=== PATIENT | female | born 1955 | race Caucasian/White ===

== ENCOUNTER 2024-01-10 18:24 | Observation (INO) | payer OTHER ==
[2024-01-10] MEDS ORDERED: ASPIRIN 81 MG CHEWABLE TABLET ONE (19:38)
[2024-01-10 19:43] LABS: Absolute Lymphocytes (CBC) 1.4 K/uL (0.7-4.9); Basophils % 0.4 % (0-1.3); Lymphocytes % 21.1 % (15.3-44.8); MCV 88.5 fL (80-100); MPV 8.6 fL (7.6-11.3); Platelets 300 thou/uL (152-406); RBC Red Blood Cell Count 4.74 M/uL (3.86-4.86)
--- NOTE | 2024-01-10 19:48 | RAD REPORT ---
EXAM DESCRIPTION: [facility] Single View01/10/2024 7:27 pm CLINICAL HISTORY: CHEST PAIN COMPARISON: Chest Pa And Lat (2 Views) dated 05/07/2018; Chest Pa And Lat (2 Views) dated 10/28/2017; CHEST SINGLE VIEW dated 09/16/2014; CHEST SINGLE VIEW dated 09/20/2012 TECHNIQUE: Portable AP view of the chest. FINDINGS: The lungs are clear. No pneumothorax or effusion. The cardiomediastinal contours are unre markable. IMPRESSION: No acute cardiopulmonary process.
[2024-01-10 20:03] LABS: ALT/SGPT 36 U/L (13-56); AST/SGOT 32 U/L (15-37); Albumin 3.9 g/dL (3.4-5.0); Alkaline Phosphatase 79 U/L (45-117); Anion Gap 6.7 mEq/L (5.0-15.0); BUN Blood Urea Nitrogen 16 mg/dL (7-18); Bicarbonate 29 mEq/L (21-32); Bilirubin Total 0.4 mg/dL (0.2-1.0); Glomerular Filtration Rate 64 ml/min (=/>90); Glucose Level 99 mg/dL (74-106); Magnesium 2.3 mg/dL (1.6-2.4); Potassium 3.7 mEq/L (3.5-5.1); Sodium Level 134 mEq/L (136-145); Troponin High Sensitivity 5.2 pg/mL (<58.9)
[2024-01-10 20:06] LABS: Bilirubin Direct < 0.1 mg/dL (0-0.2); Bilirubin Indirect, Calculated ND mg/dL (0.2-0.8)
--- NOTE | 2024-01-10 22:03 | EDPHYS ---
Physician Documentation [facility] Name: Courtney Wilson Age: 68 yrs Sex: Female : 1955 Arrival Date: 01/10/2024 Time: 18:24 Bed 5 Private MD: ED Physician Dionisio Jordan HPI: 01/09 18:43 This 68 yrs old Female presents to ER via Ambulatory with complaints of Chest Pain - ms3 Burning, High Blood pressure. 18:43 68-year-old female with past medical history of hypothyroidism, GERD, ms3 anxiety/depression presents to the emergency department after having dizzy episodes that have been ongoing for the last 6 months. Patient states she was at [facility] today and fell to her knees without hitting her head or losing consciousness. Patient notes today she is at an elevated blood pressure, chest pain that is described as burning. Patient denies any nausea or vomiting. Historical: - Allergies: 18:36 No Known Allergies; kd3 - PMHx: 01/10 01:29 High Cholesterol; tm6 - Immunization history:: Adult Immunizations up to date. - Social history:: Smoking status: unknown. ROS: 01/09 18:43 Constitutional: Negative for fever, and chills. Neck: Negative for injury, pain, and ms3 swelling, Cardiovascular: Positive for chest pain, Neuro: Positive for dizziness, All other systems are negative, Exam: 18:43 Constitutional: This is a well developed, well nourished patient who is awake, alert, ms3 and in no acute distress. Head/Face: Normocephalic, atraumatic. Neck: Trachea midline, no cervical lymphadenopathy. Supple, full range of motion without nuchal rigidity, or vertebral point tenderness. No Meningismus. Chest/axilla: Normal chest wall appearance and motion. Nontender with no deformity. Cardiovascular: Regular rate and rhythm with a normal S1 and S2. No gallops, murmurs, or rubs. Normal PMI, no JVD. No pulse deficits. Respiratory: Lungs have equal breath sounds bilaterally, clear to auscultation and percussion. No rales, rhonchi or wheezes noted. No increased work of breathing, no retractions or nasal flaring. Abdomen/GI: Soft, non-tender, with normal bowel sounds. No distension or tympany. No guarding or rebound. No evidence of tenderness throughout. Skin: Warm, dry with normal turgor. Normal color with no rashes, no lesions, and no evidence of cellulitis. MS/ Extremity: Pulses equal, no cyanosis. Neurovascular intact. Full, normal range of motion. 19:30 ECG was reviewed by the Attending Physician. ms3 Vital Signs: 18:33 Pulse 79; Resp 19; Temp 97.9(TE); Pulse Ox 99% ; kd3 18:33 BP 183 / 83; kd3 20:12 BP 148 / 80; Pulse 73; Pulse Ox 100% on R/A; Pain 0/10; tm6 21:18 BP 149 / 70; Pulse 69; Resp 19; Pulse Ox 100% on R/A; Pain 0/10; tm6 20:12 Pain Scale: Adult tm6 21:18 Pain Scale: Adult tm6 MDM: 18:43 Differential diagnosis: abnormal EKG, acute myocardial infarction, coronary artery ms3 disease. 18:54 Patient medically screened. ms3 20:09 Transition of care: After a detail discussion of the patient's case, care is ms3 transferred to Dionisio Jordan MD. 21:25 ED course: [facility] CLINICAL HISTORY: sp4 CHEST PAIN COMPARISON: Chest Pa And Lat (2 Views) dated 05/07/2018; Chest Pa And Lat (2 Views) dated 10/28/2017; CHEST SINGLE VIEW dated 09/16/2014; CHEST SINGLE VIEW dated 09/20/2012 TECHNIQUE: Portable AP view of the chest. FINDINGS: The lungs are clear. No pneumothorax or effusion. The cardiomediastinal contours are unremarkable. IMPRESSION: No acute cardiopulmonary process. . 21:54 HEART Score: History: Moderately Suspicious (1), ECG: Normal (0), Age: > or = 65 years sp4 (2), Risk Factors: 1 or 2 risk factors (1), Troponin: < or = 1 x Normal Limit (0), Total Score = 4. Data reviewed: vital signs, nurses notes, old medical records, lab test result(s), EKG, radiologic studies, plain films. 01/09 18:32 Order name: Basic Metabolic Panel; Complete Time: 20:07 ms3 01/09 18:32 Order name: CBC with Diff; Complete Time: 19:53 ms3 01/09 18:32 Order name: LFT's; Complete Time: 20:07 ms3 01/09 18:32 Order name: Magnesium; Complete Time: 20:07 ms3 01/09 18:32 Order name: Troponin HS; Complete Time: 20:07 ms3 01/09 20:07 Order name: Troponin High Sensitivity; Complete Time: 21:24 ms3 01/09 22:59 Order name: Basic Metabolic Panel EDMS 01/09 22:59 Order name: Basic Metabolic Panel EDMS 01/09 22:59 Order name: CBC with Automated Diff EDMS 01/09 22:59 Order name: CBC with Automated Diff EDMS 01/09 22:59 Order name: Lipid Profile EDMS 01/09 22:59 Order name: Lipid Profile EDMS 01/09 22:59 Order name: Magnesium EDMS 01/09 22:59 Order name: Magnesium EDMS 01/09 22:59 Order name: Troponin High Sensitivity EDMS 01/09 22:59 Order name: Troponin High Sensitivity; Complete Time: 00:55 EDMS 01/09 22:59 Order name: Troponin High Sensitivity EDMS 01/09 22:59 Order name: Troponin High Sensitivity EDMS 01/09 18:32 Order name: XRAY Chest (1 view); Complete Time: 19:53 ms3 01/09 22:00 Order name: CT Head Brain wo Cont sp4 01/09 22:59 Order name: Echo with Doppler EDMS 01/09 18:32 Order name: EKG; Complete Time: 18:33 ms3 01/09 18:32 Order name: Cardiac monitoring; Complete Time: 19:09 ms3 01/09 18:32 Order name: EKG - Nurse/Tech; Complete Time: 18:56 ms3 01/09 18:32 Order name: IV Saline Lock; Complete Time: 19:09 ms3 01/09 18:32 Order name: Labs collected and sent; Complete Time: 19:09 ms3 01/09 18:32 Order name: O2 Per Protocol; Complete Time: 19:09 ms3 01/09 18:32 Order name: O2 Sat Monitoring; Complete Time: 19:09 ms3 EC:30 Rate is 77 beats/min. Rhythm is regular. Left axis deviation noted. GA interval is ms3 normal. QRS interval is normal. Clinical impression: Normal ECG. Interpreted by me. Reviewed by me. Administered Medications: 19:41 Drug: Aspirin PO Chewable Tablet 324 mg PO once; 81 mg tablets x 4 Route: PO; tm6 22:49 Drug: Meclizine PO 50 mg PO once Route: PO; tm6 Disposition Summary: 01/10/24 22:03 Hospitalization Ordered Notes: Hospitalization Status: Observation sp4 Provider: Elder Kumar sp4 Location: Telemetry/MedSurg (observation) sp4 Condition: Stable sp4 Problem: new sp4 Symptoms: have improved sp4 Bed/Room Type: Standard sp4 Room Assignment: 424(01/11/24 00:11) kl Diagnosis - Syncope Near sp4 - Chest pain, near syncopal episodes sp4 Forms: - Medication Reconciliation Form sp4 - SBAR form sp4 - Leadership Thank You Letter sp4 Signatures: Dispatcher [employer] Africa Cutler RN RN Albaro Fang DO DO ms3 Leyda Stephen RN RN kd3 Dionisio Jordan MD MD sp4 Pramod Pete RN RN tm6 Corrections: (The following items were deleted from the chart) 01/10 00:11 01/09 22:03 sp4 melinda
--- NOTE | 2024-01-10 22:03 | ER ---
Nurse's Notes [facility] Name: Courtney Wilson Age: 68 yrs Sex: Female : 1955 Arrival Date: 01/10/2024 Time: 18:24 Bed 5 Private MD: Diagnosis: Syncope Near;Chest pain, near syncopal episodes Presentation: 01/09 18:33 Chief complaint: Patient states: I got dizzy today at [facility] and fell down to my knees. I kd3 have been having dizzy spells every so often over the past 6 months. My chest hurts as well. My blood pressure is high. It never was high before. I have not had vomiting at all. 18:35 Ebola Screen: No symptoms or risks identified at this time. Initial Sepsis Screen: Does kd3 the patient meet any 2 criteria? No. Patient's initial sepsis screen is negative. Does the patient have a suspected source of infection? No. Patient's initial sepsis screen is negative. Risk Assessment: Do you want to hurt yourself or someone else? Patient reports no desire to harm self or others. Onset of symptoms was January 10, 2024. 18:35 Method Of Arrival: Ambulatory kd3 18:36 Acuity: MAURO 3 kd3 18:40 Coronavirus screen: unknown. kd3 Triage Assessment: 18:35 General: Appears in no apparent distress. Behavior is calm, cooperative. Pain: kd3 Complains of pain in chest. Cardiovascular: Patient's skin is warm and dry. Historical: - Allergies: 18:36 No Known Allergies; kd3 - PMHx: 01/10 01:29 High Cholesterol; tm6 - Immunization history:: Adult Immunizations up to date. - Social history:: Smoking status: unknown. Screenin/07 19:16 [facility] ED Fall Risk Assessment (Adult) History of falling in the last 3 months, kc6 including since admission No falls in past 3 months (0 pts) Confusion or Disorientation No (0 pts) Intoxicated or Sedated No (0 pts) Impaired Gait No (0 pts) Mobility Assist Device Used No (0 pt) Altered Elimination No (0 pt) Score/Fall Risk Level 0 - 2 = Low Risk. Abuse screen: Denies threats or abuse. Denies injuries from another. Nutritional screening: No deficits noted. Tuberculosis screening: No symptoms or risk factors identified. Assessment: 20:13 General: Appears in no apparent distress. Behavior is calm, cooperative. Pain: tm6 Complains of pain in chest Pain does not radiate. Pain began 1 day ago. Neuro: Level of Consciousness is awake, alert, obeys commands, Oriented to person, place, time, situation. Cardiovascular: Reports chest pain, Capillary refill < 3 seconds Patient's skin is warm and dry. Rhythm is sinus rhythm. Respiratory: Airway is patent Respiratory effort is even, unlabored, Respiratory pattern is regular, symmetrical. GI: No signs and/or symptoms were reported involving the gastrointestinal system. Abdomen is flat, non-distended. : No signs and/or symptoms were reported regarding the genitourinary system. : No signs and/or symptoms were reported regarding the genitourinary system. EENT: No signs and/or symptoms were reported regarding the EENT system. Derm: No signs and/or symptoms reported regarding the dermatologic system. Musculoskeletal: No signs and/or symptoms reported regarding the musculoskeletal system. 21:19 Reassessment: Patient appears in no apparent distress at this time. Patient and/or tm6 family updated on plan of care and expected duration. Pain level reassessed. Patient is alert, oriented x 3, equal unlabored respirations, skin warm/dry/pink. 01/10 01:00 Reassessment: report attempted. tm6 01:30 Reassessment: report attempted. tm6 01:41 Reassessment: report called to Rosa. tm6 Vital Signs: 01/09 18:33 Pulse 79; Resp 19; Temp 97.9(TE); Pulse Ox 99% ; kd3 18:33 BP 183 / 83; kd3 20:12 BP 148 / 80; Pulse 73; Pulse Ox 100% on R/A; Pain 0/10; tm6 21:18 BP 149 / 70; Pulse 69; Resp 19; Pulse Ox 100% on R/A; Pain 0/10; tm6 20:12 Pain Scale: Adult tm6 21:18 Pain Scale: Adult tm6 ED Course: 18:27 Patient arrived in ED. mg5 18:32 Albaro Farooq DO is Attending Physician. ms3 18:35 Arm band placed on left wrist. kd3 18:37 Triage completed. kd3 19:00 Report given to JJ, RN \T\ Tawney, RN. kc6 19:09 Inserted saline lock: 20 gauge in right antecubital area, using aseptic technique. kc6 Blood collected. Patient maintains SpO2 saturation greater than 95% on room air. 19:16 Patient has correct armband on for positive identification. Bed in low position. Call kc6 light in reach. Side rails up X 1. Adult w/ patient. Client placed on continuous cardiac and pulse oximetry monitoring. NIBP monitoring applied. ekg monitor tech on. 19:29 XRAY Chest (1 view) In Process Unspecified. EDMS 19:31 Door closed. Noise minimized. Lights dimmed. Warm blanket given. tm6 19:32 Pramod Pete RN is Primary Nurse. tm6 19:41 Basic Metabolic Panel Sent. tm6 19:41 CBC with Diff Sent. tm6 19:41 LFT's Sent. tm6 19:41 Magnesium Sent. tm6 19:41 Troponin HS Sent. tm6 20:13 Provided Education on: ER wait times. tm6 20:15 Attending Physician role handed off by Albaro Farooq DO ms3 20:15 Dionisio Jordan MD is Attending Physician. ms3 20:22 Troponin High Sensitivity Sent. tm6 22:01 Elder Kumar MD is Hospitalizing Provider. sp4 22:35 CT Head Brain wo Cont In Process Unspecified. EDMS 0308 01:28 No provider procedures requiring assistance completed. Patient admitted, IV remains in tm6 place. Administered Medications: 01/09 19:41 Drug: Aspirin PO Chewable Tablet 324 mg PO once; 81 mg tablets x 4 Route: PO; tm6 22:49 Drug: Meclizine PO 50 mg PO once Route: PO; tm6 Medication: 20:13 VIS not applicable for this client. tm6 Outcome: 22:03 Decision to Hospitalize by Provider. sp4 01/10 01:28 Admitted to Med/surg tm6 Condition: stable Instructed on the need for admit, 01:41 Patient left the ED. tm6 Signatures: Dispatcher [employer] EDFL Albaro Farooq DO DO ms3 Leyda Stephen RN RN kd3 Anabella Garcia RN RN Dionisio Padilla MD MD sp4 Kimberly Duran mg5 Pramod Pete, RN RN tm6
[2024-01-10] MEDS ORDERED: MECLIZINE HCL 12.5 MG TAB ONE (22:46)
--- NOTE | 2024-01-10 22:48 | P.HP ---
Certification for Inpatient Patient admitted to: Observation With expected LOS: <2 Midnights Practitioner: I am a practitioner with admitting privileges, knowledge of patient current condition, hospital course, and medical plan of care. Services: Services provided to patient in accordance with Admission requirements found in Title 42 Section 412.3 of the Code of Federal Regulations Patient History Date of Service: 01/11/24 Reason for admission: Chest pain History of Present Illness: Six 8-year-old female patient with medical history significant for hypertension, hypothyroidism, reflux esophagitis and upper lipidemia was evaluated for episode of chest pain. She described pain as 6 out of 10 in intensity located in the anterior chest area. No radiation of pain to the neck region on the left or left arm. Because of pain persisted she decided to come to the ED and in the ED initial EKG and labs done showed no acute abnormality. She was admitted for ACS workup secondary to comorbid condition and age. Allergies No Known Allergies Allergy (Unverified 09/20/12 18:42) Home Medications: Levothyroxine [Synthroid*] 0.125 mg PO DAILY 09/21/12 Rabeprazole Sodium [Aciphex] 20 mg PO DAILY 09/21/12 Atorvastatin Calcium [Lipitor] 10 mg PO BEDTIME 02/03/23 Escitalopram [Lexapro] 5 mg PO DAILY 02/03/23 Ezetimibe [Zetia*] 10 mg PO DAILY 02/03/23 - Past Medical/Surgical History Diabetic: No -: hypothyroidism -: acid reflux -: high cholesterol -: Loving's esophagus -: anxiety -: x4 -: appendectomy -: colon resection 2004 -: hernia repair -: ovary removal Psychosocial/ Personal History: Patient was at home with her , is retired. - Social History Alcohol use: No CD- Drugs: No Caffeine use: No Review of Systems General: Unremarkable Eyes: Unremarkable ENT: Unremarkable Respiratory: Unremarkable Cardiovascular: As per HPI Gastrointestinal: Unremarkable Genitourinary: Unremarkable Musculoskeletal: Unremarkable Integumentary: Unremarkable Neurological: Unremarkable Lymphatics: Unremarkable Physical Examination - Physical Exam General: Alert, Oriented x3 HEENT: Atraumatic Neck: Supple Respiratory: Normal air movement Cardiovascular: Regular rate/rhythm, Normal S1 S2 Gastrointestinal: Soft and benign Musculoskeletal: No swelling Neurological: Normal speech, Normal strength at 5/5 x4 extr - Studies Laboratory Data (last 24 hrs) 01/10/24 01/10/24 19:34 19:34 WBC 6.60 Hgb 14.2 Hct 42.0 Plt Count 300 Sodium 134 L Potassium 3.7 BUN 16 Creatinine 0.97 Glucose 99 Magnesium 2.3 Total Bilirubin 0.4 AST 32 ALT 36 Alkaline Phosphatase 79 Assessment and Plan - Plan Chest pain: Etiology yet to be fully determined however there is concern for ACS plus possibility of reflux esophagitis. Will continue pantoprazole therapy, telemetry monitoring and trend troponin. As needed morphine for pain contributing continue. Aspirin therapy to be continued. Will follow trend of troponin to determine further course. We might have to health and wellness advisor to evaluate. Hypertension: We will monitor vital signs per unit protocol and continue antihypertensive medications. Hyperlipidemia: We will continue statin therapy. Reflux esophagitis: We will continue pantoprazole therapy. Prophylaxis: Lovenox for DVT prophylaxis. CODE STATUS: Full code. Disposition: We will workup her chest pain and she will be discharged once workup is completed and she is deemed clinically stable for outpatient therapy. - Advance Directives Does patient have a Living Will: No Does patient have a Durable POA for Healthcare: No
[2024-01-10] MEDS ORDERED: NITROGLYCERIN 0.4 MG/TAB SL PRN (22:52)
[2024-01-10] MEDS ORDERED: ACETAMINOPHEN 500 MG TAB PO PRN (22:52)
[2024-01-10] MEDS ORDERED: MORPHINE 4 MG/ML SYR IV PRN (22:52)
[2024-01-10] MEDS ORDERED: ONDANSETRON 4 MG/2 ML VIAL IV PRN (22:52)
[2024-01-11 01:47] VITALS: BMI 32.1
[2024-01-11 02:45] VITALS: O2SAT 100
[2024-01-11 02:58] LABS: Absolute Lymphocytes (CBC) 1.4 K/uL (0.7-4.9); Basophils % 0.5 % (0-1.3); Hematocrit 38.5 % (36.0-45.0); Lymphocytes % 19.8 % (15.3-44.8); MCV 87.9 fL (80-100); MPV 8.3 fL (7.6-11.3); Platelets 254 thou/uL (152-406); RBC Red Blood Cell Count 4.38 M/uL (3.86-4.86)
[2024-01-11 03:20] LABS: Anion Gap 10.7 mEq/L (5.0-15.0); Magnesium 2.2 mg/dL (1.6-2.4); Potassium 3.7 mEq/L (3.5-5.1)
[2024-01-11] MEDS: ASPIRIN EC 81 MG TAB PO SCH (08:43)
[2024-01-11] MEDS: ENOXAPARIN 40 MG/0.4 ML SQ SCH (08:43)
--- NOTE | 2024-01-11 09:06 | P.PN ---
Subjective Date of Service: 01/11/24 Chief Complaint: Chest pain Admitted for chest pain, chest pain relieved with as needed analgesics, serial troponins neck Echo ordered for today - Physical Exam General: Alert, Oriented x3 HEENT: Atraumatic Neck: Supple Respiratory: Normal air movement Cardiovascular: Regular rate/rhythm, Normal S1 S2 Gastrointestinal: Soft and benign Musculoskeletal: No swelling Neurological: Normal speech, Normal strength at 5/5 x4 extr Review of Systems Per HPI Physical Examination - Vital Signs Temperature: 96.9 F Blood Pressure: 148/67 Pulse: 69 Respirations: 16 Pulse Ox (%): 96 - Studies Laboratory Data (last 24 hrs) 01/10/24 01/10/24 19:34 19:34 WBC 6.60 Hgb 14.2 Hct 42.0 Plt Count 300 Sodium 134 L Potassium 3.7 BUN 16 Creatinine 0.97 Glucose 99 Magnesium 2.3 Total Bilirubin 0.4 AST 32 ALT 36 Alkaline Phosphatase 79 Assessment And Plan - Plan Assessment and Plan - Plan Chest pain: Etiology yet to be fully determined however there is concern for ACS plus possibility of reflux esophagitis. Will continue pantoprazole therapy, telemetry monitoring and trend troponin. As needed morphine for pain contributing continue. Aspirin therapy to be continued. Will follow trend of troponin to determine further course. We might have to director of math to evaluate. Serial troponins negative Echo ordered Hypertension: We will monitor vital signs per unit protocol and continue antihypertensive medications. Hyperlipidemia: We will continue statin therapy. Reflux esophagitis: We will continue pantoprazole therapy. Prophylaxis: Lovenox for DVT prophylaxis. CODE STATUS: Full code. Disposition: We will workup her chest pain and she will be discharged once workup is completed and she is deemed clinically stable for outpatient therapy. Discharge Plan: Home - Code Status/Comfort Care Code Status: Full Code Critical Care: No Time Spent Managing PTS Care (In Minutes): 35
--- NOTE | 2024-01-11 09:10 | P.DS ---
Admission Date: 01/10/24 Discharge Date: 01/11/24 Disposition: ROUTINE DISCHARGE Discharge Condition: FAIR Reason for Admission: Chest pain Brief History of Present Illness: Six 8-year-old female patient with medical history significant for hypertension, hypothyroidism, reflux esophagitis and upper lipidemia was evaluated for episode of chest pain. She described pain as 6 out of 10 in intensity located in the anterior chest area. No radiation of pain to the neck region on the left or left arm. Because of pain persisted she decided to come to the ED and in the ED initial EKG and labs done showed no acute abnormality. She was admitted for ACS workup secondary to comorbid condition and age. - Physical Exam General: Alert, Oriented x3 HEENT: Atraumatic Neck: Supple Respiratory: Normal air movement Cardiovascular: Regular rate/rhythm, Normal S1 S2 Gastrointestinal: Soft and benign Musculoskeletal: No swelling Neurological: Normal speech, Normal strength at 5/5 x4 extr Hospital Course: 68-year-old female with a past medical history of reflux, hypertension, hypothyroidism admitted for chest pain, serial troponins are negative, no reported chest pain radiation. Echo ordered, plan to discharge home follow-up with primary care in 1 week. Follow-up with cardiology after discharge. Problem Chest pain rule out CT Serial troponins negative History of hypertension Resume home medications for GERD, hypertension, GOAL: Clear understanding of disease process INSTRUCTIONS: Physician Discharge Instructions: -Follow-up with PCP in 1 to 2 weeks -Please call Dr. Villalobos at [phone] if any questions regarding hospital stay -Please call nursing station at [phone] if any nursing or medication questions -Return to the emergency room if symptoms worsen Diet: ADA, low sodium Activity: Fall precautions Vital Signs/Physical Exam: Temp Pulse Resp BP Pulse Ox 96.9 F 69 16 148/67 H 96 01/11/24 09:06 01/11/24 09:06 01/11/24 09:06 01/11/24 09:06 01/11/24 09:06 Laboratory Data at Discharge: WBC 7.00 thou/uL (4.3-10.9) 01/11/24 02:31 Hgb 13.2 g/dL (12.0-15.0) 01/11/24 02:31 Hct 38.5 % (36.0-45.0) 03/08/24 02:31 Plt Count 254 thou/uL (152-406) 01/11/24 02:31 Sodium 138 mEq/L (136-145) 01/11/24 02:31 Potassium 3.7 mEq/L (3.5-5.1) 01/11/24 02:31 BUN 13 mg/dL (7-18) 01/11/24 02:31 Creatinine 0.76 mg/dL (0.55-1.02) 01/11/24 02:31 Glucose 125 mg/dL (74-106) H 01/11/24 02:31 Magnesium 2.2 mg/dL (1.6-2.4) 01/11/24 02:31 Total Bilirubin 0.4 mg/dL (0.2-1.0) 01/10/24 19:34 AST 32 U/L (15-37) 01/10/24 19:34 ALT 36 U/L (13-56) 01/10/24 19:34 Alkaline Phosphatase 79 U/L (45-117) 01/10/24 19:34 Triglycerides 55 mg/dL (<150) 01/11/24 02:31 Cholesterol 156 mg/dL (<200) 01/11/24 02:31 HDL Cholesterol 58 mg/dL (40-60) 01/11/24 02:31 Cholesterol/HDL Ratio 2.69 01/11/24 02:31 Home Medications: Levothyroxine [Synthroid*] 0.125 mg PO DAILY 09/21/12 Rabeprazole Sodium [Aciphex] 20 mg PO DAILY 09/21/12 Atorvastatin Calcium [Lipitor] 10 mg PO BEDTIME 02/03/23 Escitalopram [Lexapro] 5 mg PO DAILY 02/03/23 Ezetimibe [Zetia*] 10 mg PO DAILY 02/03/23 Diet: AHA Activity: Fall precautions Followup: OOT,OOT [Primary Care Provider] - Physician Review: Patient Assessed, Agree with Above Assessment and Plan (55)
[2024-01-11] MEDS ORDERED: MECLIZINE HCL 12.5 MG TAB PO PRN (11:11)
[2024-01-11] MEDS: SUCRALFATE 1GM/10ML UCUP FT SCH (11:11)
--- NOTE | 2024-01-11 15:59 | RAD REPORT ---
EXAM DESCRIPTION: US - CP - 01/11/2024 3:25 pm CLINICAL HISTORY: atherosclerosis COMPARISON: CAROTID ARTERY BILATERAL dated 03/14/2012 TECHNIQUE: Real-time sonographic evaluation of both carotid systems was performed. Doppler interroga tion was performed with waveform tracing bilaterally. FINDINGS: Normal high resistance waveforms are noted in both external carotid arteries. The common c arotid arteries and internal carotid arteries show normal low resistance waveforms. Mild hard plaque present at the right and left carotid bulb. Peak systolic and end diastolic velocity values and the ICA/CCA ratios are in the non-hemodynamically significant range. Antegrade flow seen in both vertebral arteries. IMPRESSION: No evidence of a hemodynamically significant stenosis. Hard plaque present at the caroti d bulbs bilaterally.
--- NOTE | 2024-01-11 18:27 | RAD REPORT ---
EXAM DESCRIPTION: CT Head Without Intravenous Contrast CLINICAL HISTORY: DIZZINESS TECHNIQUE: Axial computed tomography images of the head/brain without intravenous contrast. Sagitt al and coronal reformatted images were created and reviewed. This CT exam was performed using one o r more of the following dose reduction techniques: automated exposure control, adjustment of the mA and/or kV according to patient size, and/or use of iterative reconstruction technique. COMPARISON: No relevant prior studies available. FINDINGS: Brain: Unremarkable. No hemorrhage. No significant white matter disease. No edema. Ventricles: Unremarkable. No ventriculomegaly. Bones/joints: Unremarkable. No acute fracture. Soft tissues: Unremarkable. Vasculature: There is atherosclerotic disease of the internal carotid and vertebral arteries bilate rally. Sinuses: Left maxillary sinus mucus retention cyst/polyp. Mastoid air cells: Unremarkable as visualized. No mastoid effusion. IMPRESSION: 1. No acute intracranial or extra-axial abnormality. 2. Other findings as above. ' Electronically signed by: Marni Powell MD 01/10/2024 10:51 PM STUDENT SERVICES REPRESENTATIVE Due to temporary technical issues with the PACS/Fluency reporting system, reports are being signed by the in house radiologists without review as a courtesy to insure prompt reporting. The interpreting radiologist is fully responsible for the content of the report.
[2024-01-11] MEDS ORDERED: ATORVASTATIN 20 MG TAB PO SCH (21:00)
[2024-01-11] MEDS ORDERED: ATORVASTATIN 40 MG TAB PO SCH (21:00)
[2024-01-11] MEDS ORDERED: ATORVASTATIN 10 MG TAB PO SCH (21:00)
[2024-01-12] MEDS ORDERED: LEVOTHYROXINE SOD 0.125 MG TAB PO SCH (06:30)
[2024-01-12 07:44] VITALS: BP 153/75; TEMP 97.5
[2024-01-12] MEDS ORDERED: ESCITALOPRAM 20 MG TAB PO SCH (09:00)
[2024-01-12] MEDS ORDERED: PANTOPRAZOLE 40MG TABLET PO SCH (09:00)
[2024-01-12] MEDS ORDERED: HOME MED 1 EA UNK (Rabeprazole Sodium [Aciphex] 20 MG Tablet.Dr) PO SCH (09:00)
[2024-01-12] MEDS ORDERED: EZETIMIBE 10 MG TAB PO SCH (09:00)
--- NOTE | 2024-01-14 12:30 | ECHO ---
HEIGHT: 5 ft 4 in WEIGHT: 187 lb 0 oz DATE OF STUDY: 01/11/[address]: Elder Kumar MD 2-DIMENSIONAL: YES M.MODE: YES DOPPLER: YES COLOR FLOW: YES TDS: NO PORTABLE: YES DEFINITY: NO BUBBLE STUDY: NO DIAGNOSIS: EVALUATE OF CHEST PAIN CARDIAC HISTORY: CATHERIZATION: NO SURGERY: NO PROSTHETIC VALVE: NO PACEMAKER: NO MEASUREMENTS (cm) DIASTOLIC (NORMALS) SYSTOLIC (NORMALS) IVSd 1.0 (0.6-1.2) LA Diam 3.5 (1.9-4.0) LVEF 60-65% LVIDd 4.2 (3.5-5.7) LVIDs 2.5 (2.0-3.5) %FS 40% LVPWd 1.1 (0.6-1.2) Ao Diam 2.9 (2.0-3.7) 2 DIMENSIONAL ASSESSMENT: RIGHT ATRIUM: NORMAL LEFT ATRIUM: NORMAL RIGHT VENTRICLE: NORMAL LEFT VENTRICLE: NORMAL TRICUSPID VALVE: MILD TRICUSPID REGURGITATION MITRAL VALVE: NORMAL PULMONIC VALVE: NORMAL AORTIC VALVE: NORMAL PERICARDIAL EFFUSION: NONE AORTIC ROOT: NORMAL LEFT VENTRICULAR WALL MOTION: NORMAL. DOPPLER/COLOR FLOW: NORMAL. COMMENTS: NORMAL LEFT VENTRICULAR SYSTOLIC FUNCTION, EJECTION FRACTION 60-65%, NORMAL WALL MOTION. NORMAL DIASTOLIC FUNCTION. MILD TRICUSPID REGURGITATION. TECHNOLOGIST: BRENNON DAVIS
== END 2024-01-11 16:14 | disposition home or self-care (01) ==
LOC: ER 18:24 → ERHOLD 22:52 → UNDOADMOB 23:00 → ERHOLD 23:00 → 4TH 01-11 00:35
PROVIDERS: ADMIT Internal Medicine Nephrology; ATTEND Hospitalist
DX: R07.9 Chest pain, unspecified (principal); I10 Essential (primary) hypertension; E03.9 Hypothyroidism, unspecified; K21.00 Gastro-esophageal reflux disease with esophagitis, without bleeding; E78.5 Hyperlipidemia, unspecified
CPT/HCPCS: 93005; 93306; 85025 ×2; 80048 ×2; 36415; 83735 ×2; 80061; 80076; 84484 ×5; 70450; 71045; 93880; 99285; J8597; G0378; J1650